=== PATIENT | male | born 1985 | race Caucasian/White ===

== ENCOUNTER 2017-03-22 18:12 | Emergency (ER) | payer OTHER ==
[~2017-03-22] VITALS: Ht 170.2 cm; Wt 74.8 kg
[2017-03-22] MEDS ORDERED: CLAR10CA3 PO (18:19)
[2017-03-22] MEDS ORDERED: ZEST1TAB5 PO (18:19)
[2017-03-22 20:38] LABS: BASO # 0.1 K/mm3 (0.0-0.2); BASO % 0.7 % (0.0-1.0); EOS # 0.2 K/mm3 (0.0-0.50); LARGE UNSTAINED CELL # 0.1 K/mm3 (0.0-0.4); LARGE UNSTAINED CELL % 1.3 % (0.0-4.0); LYMPH # 2.6 K/mm3 (1.5-4.5); LYMPH % 21.4 % (24.0-44.0); MEAN CORPUSCULAR HEMOGLOBIN 31.8 pg (27.0-33.0); MEAN CORPUSCULAR HGB CONC 35.3 g/dl (32.0-36.5); MEAN CORPUSCULAR VOLUME 90.2 fl (80.0-96.0); MONO # 0.5 K/mm3 (0.0-0.8); MONO % 4.2 % (0.0-5.0); NEUTROPHILS % 70.5 % (36.0-66.0); PLATELET COUNT, AUTOMATED 236 k/mm3 (150-450); RED CELL DISTRIBUTION WIDTH 12.2 % (11.5-14.5); WHITE BLOOD COUNT 11.3 K/mm3 (4.0-10.0)
[2017-03-22 20:56] LABS: ANION GAP 11 MEQ/L (8-16); BLOOD UREA NITROGEN 9 MG/DL (7-18); CALCIUM LEVEL 9.6 MG/DL (8.5-10.1); CARBON DIOXIDE LEVEL 28 MEQ/L (21-32); CHLORIDE LEVEL 97 MEQ/L (98-107); CREATININE FOR GFR 0.81 MG/DL (0.70-1.30); GLOMERULAR FILTRATION RATE > 60.0 (>60); GLUCOSE, FASTING 106 MG/DL (70-105); POTASSIUM SERUM 3.7 MEQ/L (3.5-5.1); SODIUM LEVEL 136 MEQ/L (136-145)
--- NOTE | 2017-03-22 22:30 | REPUSA ---
CT of the abdomen and pelvis without contrast Clinical statement: Pain, hematuria. Technique: Multiple axial CT images were obtained from the base of the lungs to the floor of the pelv is utilizing 5 mm axial slices without administration of contrast. Coronal and sagittal reconstructio ns were also obtained. No comparison is available. Findings: Chest: The visualized lung bases are clear. Abdomen: The kidneys are normal in size bilaterally. There is no evidence of hydronephrosis. Bilatera l nonobstructing nephrolithiasis is noted, with stones measuring up to 3 mm. There is diffuse low att enuation throughout the liver. The spleen, pancreas, gallbladder and adrenal glands are unremarkable. The aorta demonstrates normal caliber and contour. There is no abdominal lymphadenopathy or ascites. Pelvis: The bowel is unremarkable, with no obstructive or inflammatory changes. The urinary bladder i s within normal limits. There is no pelvic lymphadenopathy or ascites. The other pelvic structures ap pear unremarkable. Bones: There are no suspicious osseous abnormalities seen. Impression: 1. Minimal bilateral nonobstructing nephrolithiasis. No evidence of hydronephrosis. 2. Diffuse fatty infiltration of the liver. 3. No obstructive or inflammatory bowel changes.
[2017-03-22] MEDS ORDERED: CIPR500T89 PO (22:50)
[2017-03-22 22:53] VITALS: BP 155/103
[2017-03-22] MEDS ORDERED: CIPROFLOXACIN 500 MG TAB PO ONE (23:00)
--- NOTE | 2017-03-23 12:59 | ED PDOC ---
Post-Departure Follow-Up certified letter sent regarding radiology report Floridalma Looney MD March 23, 2017 12:59
== END 2017-03-22 22:55 | disposition home or self-care (01) ==
LOC: M ED 19:37
DX: R31.9 Hematuria, unspecified (principal); I10 Essential (primary) hypertension; Z87.442 Personal history of urinary calculi; Z79.899 Other long term (current) drug therapy; Z87.891 Personal history of nicotine dependence

== ENCOUNTER → 2018-02-28 | Outpatient (CLI) | payer OTHER | LOC: M RAD 06:51 | DX: J32.4 Chronic pansinusitis (principal) | CPT/HCPCS: 70486 ==

== ENCOUNTER 2018-03-10 22:31 | Emergency (ER) | payer OTHER ==
[2018-03-11] MEDS: ONDANSETRON 4 MG ORAL DISINTEGRATING TAB (Q0162 PER 1MG) PO (01:45)
[2018-03-11] MEDS: IBUPROFEN 600 MG TAB PO (01:45)
[2018-03-11] MEDS: AUGMENTIN 875 MG TAB PO (01:45)
== END 2018-03-11 02:14 | disposition home or self-care (01) ==
LOC: M ED 22:31
DX: J02.9 Acute pharyngitis, unspecified (principal); I10 Essential (primary) hypertension; Z79.899 Other long term (current) drug therapy; F17.210 Nicotine dependence, cigarettes, uncomplicated
CPT/HCPCS: Q0162

== ENCOUNTER 2018-03-11 15:56 | Emergency (ER) | payer OTHER ==
[2018-03-11] MEDS: NS 1,000 ML IV (17:31)
[2018-03-11] MEDS: KETOROLAC 30 MG/ML VIAL (J1885) IV (17:31)
[2018-03-11] MEDS: ONDANSETRON 4MG/2ML VIAL (J2405) IV (17:31)
[2018-03-11 17:35] LABS: BASO # 0.1 10^3/uL (0.0-0.2); BASO % 0.4 % (0.0-1.0); EOS # 0.4 10^3/uL (0.0-0.50); HEMATOCRIT 44.7 % (42.0-52.0); HEMOGLOBIN 15.8 g/dl (13.5-17.5); IMMATURE GRANULOCYTE % 0.7 % (0-3.0); LYMPH # 2.4 10^3/uL (1.5-4.5); LYMPH % 12.3 % (24.0-44.0); MEAN CORPUSCULAR HEMOGLOBIN 32.1 pg (27.0-33.0); MEAN CORPUSCULAR HGB CONC 35.3 g/dl (32.0-36.5); MEAN CORPUSCULAR VOLUME 90.9 fl (80.0-96.0); MONO # 1.5 10^3/uL (0.0-0.8); MONO % 8.1 % (0.0-5.0); NEUTROPHILS # 14.6 10^3/uL (1.8-7.7); NEUTROPHILS % 76.5 % (36.0-66.0); PLATELET COUNT, AUTOMATED 178 10^3/uL (150-450); RED BLOOD COUNT 4.92 10^6/uL (4.30-6.10); RED CELL DISTRIBUTION WIDTH 12.1 % (11.5-14.5); WHITE BLOOD COUNT 19.1 10^3/uL (4.0-10.0)
[2018-03-11] MEDS: METOCLOPRAMIDE INJ 10MG/2ML VIAL (J2765) IV (17:47)
[2018-03-11] MEDS: diphenhydrAMINE INJ 50MG/ML VIAL (J1200) IV (17:47)
[2018-03-11 18:00] LABS: ALKALINE PHOSPHATASE 63 U/L (45-117); ALT/SGPT 46 U/L (12-78); ANION GAP 5 MEQ/L (8-16); AST/SGOT 25 U/L (7-37); BILIRUBIN,DIRECT 0.2 MG/DL (0.0-0.2); BILIRUBIN,TOTAL 0.9 MG/DL (0.2-1.0); BLOOD UREA NITROGEN 9 MG/DL (7-18); CALCIUM LEVEL 9.3 MG/DL (8.5-10.1); CARBON DIOXIDE LEVEL 30 MEQ/L (21-32); CHLORIDE LEVEL 100 MEQ/L (98-107); CREATININE FOR GFR 0.89 MG/DL (0.70-1.30); GLOMERULAR FILTRATION RATE > 60.0 (>60); GLUCOSE, FASTING 93 MG/DL (70-100); LIPASE 135 U/L (73-393); SODIUM LEVEL 135 MEQ/L (136-145)
[2018-03-11 18:44] LABS: INFLUENZA A AMPLIFICATION NEGATIVE (NEGATIVE); INFLUENZA B AMPLIFICATION NEGATIVE (NEGATIVE)
[2018-03-11] MEDS: METOCLOPRAMIDE 10 MG TAB PO (19:20)
== END 2018-03-11 19:31 | disposition home or self-care (01) ==
LOC: M ED 15:56
DX: J02.9 Acute pharyngitis, unspecified (principal); R11.2 Nausea with vomiting, unspecified; R19.7 Diarrhea, unspecified; E86.0 Dehydration; F17.210 Nicotine dependence, cigarettes, uncomplicated; Z79.899 Other long term (current) drug therapy
CPT/HCPCS: J1200

== ENCOUNTER 2018-04-28 08:04 | Day surgery (SDC) | payer OTHER ==
[2018-04-28] MEDS ORDERED: fentaNYL 100 MCG/2 ML INJECTION (J3010) As Ordered ×3 (09:26→11:21)
[2018-04-28] MEDS ORDERED: MIDAZOLAM INJ 2 MG/2 ML VIAL (J2250) As Ordered (09:26)
[2018-04-28] MEDS ORDERED: ROCURONIUM BROMIDE 50 MG/5 ML VIAL As Ordered (09:29)
[2018-04-28] MEDS: OXYMETAZOLINE NASAL SPRAY (AFRIN) As Ordered (09:37)
[2018-04-28] MEDS ORDERED: LIDOCAINE 2% INJ 100 MG/5 ML SDV (FOR ANES.) As Ordered (10:02)
[2018-04-28] MEDS ORDERED: ONDANSETRON 4MG/2ML VIAL (J2405) As Ordered ×2 (10:02)
[2018-04-28] MEDS ORDERED: dexameTHASONE 4 MG/ML 1ML VIAL (J1100) As Ordered ×2 (10:06)
[2018-04-28] MEDS: LIDOCAINE W/EPINEPHRINE 1% 20ML VIAL As Ordered ×2 (10:09)
[2018-04-28] MEDS: EPINEPHrine 1MG/ML INJ 30ML MD-VIAL As Ordered (10:09)
[2018-04-28] MEDS: METHYLENE BLUE 0.5% (5MG/ML) 10 ML AMP (PROVAYBLUE)(Q9968 PER 1MG) As Ordered (10:09)
[2018-04-28] MEDS ORDERED: SUGAMMADEX SODIUM 500 MG/5 ML VIAL (BRIDION) As Ordered (10:38)
[2018-04-28] MEDS ORDERED: ePHEDrine SULFATE 25 MG/5 ML(5MG/ML) SYRINGE As Ordered (10:41)
[2018-04-28] MEDS ORDERED: ONDANSETRON 4MG/2ML VIAL (J2405) IV (11:30)
[2018-04-28] MEDS ORDERED: LR 1,000 ML IV (11:30)
[2018-04-28] MEDS: fentaNYL 100 MCG/2 ML INJECTION (J3010) IV ×4 (11:30→11:45)
[2018-04-28] MEDS ORDERED: PERCOCET 5MG/325MG TAB PO (11:30)
[2018-04-28] MEDS: PERCOCET 5MG/325MG TAB PO (11:52)
[2018-04-28] MEDS ORDERED: DESFLURANE 240 ML INHALANT As Ordered (13:17)
== END 2018-04-28 13:03 | disposition home or self-care (01) ==
LOC: M SDC 08:04
DX: J34.2 Deviated nasal septum (principal); J32.9 Chronic sinusitis, unspecified; I10 Essential (primary) hypertension; Z79.899 Other long term (current) drug therapy; F17.210 Nicotine dependence, cigarettes, uncomplicated
CPT/HCPCS: 30520

== ENCOUNTER 2018-04-29 04:44 | Emergency (ER) | payer OTHER | END 2018-04-29 08:18 | disposition home or self-care (01) | LOC: M ED 04:44 | DX: J95.830 Postprocedural hemorrhage of a respiratory system organ or structure following a respiratory system procedure (principal); Z79.899 Other long term (current) drug therapy | CPT/HCPCS: 99283 ==

== ENCOUNTER 2018-05-05 12:06 | Observation (INO) | payer OTHER ==
[2018-05-05] MEDS: MULTIVITAMINS/MINERALS THERAP 1 TAB PO (09:00)
[2018-05-05] MEDS: FOLIC ACID 1 MG TAB PO (09:00)
[2018-05-05 13:06] LABS: BASO # 0.1 10^3/uL (0.0-0.2); BASO % 0.4 % (0.0-1.0); EOS # 0.1 10^3/uL (0.0-0.50); EOS % 0.7 % (0.0-3.0); HEMATOCRIT 46.5 % (42.0-52.0); HEMOGLOBIN 16.5 g/dl (13.5-17.5); IMMATURE GRANULOCYTE % 1.2 % (0-3.0); LYMPH # 1.7 10^3/uL (1.5-4.5); LYMPH % 9.1 % (24.0-44.0); MEAN CORPUSCULAR HEMOGLOBIN 32.2 pg (27.0-33.0); MEAN CORPUSCULAR HGB CONC 35.5 g/dl (32.0-36.5); MEAN CORPUSCULAR VOLUME 90.6 fl (80.0-96.0); MONO # 0.9 10^3/uL (0.0-0.8); MONO % 4.9 % (0.0-5.0); NEUTROPHILS # 15.2 10^3/uL (1.8-7.7); NEUTROPHILS % 83.7 % (36.0-66.0); PLATELET COUNT, AUTOMATED 338 10^3/uL (150-450); RED BLOOD COUNT 5.13 10^6/uL (4.30-6.10); RED CELL DISTRIBUTION WIDTH 13.2 % (11.5-14.5); WHITE BLOOD COUNT 18.2 10^3/uL (4.0-10.0)
[2018-05-05] MEDS: METOCLOPRAMIDE INJ 10MG/2ML VIAL (J2765) IV ×2 (13:07→20:29)
[2018-05-05] MEDS: NS 1,000 ML IV ×3 (13:07→20:19)
[2018-05-05 13:38] LABS: ALBUMIN 4.1 GM/DL (3.2-5.2); ALBUMIN/GLOBULIN RATIO 0.98 (1.00-1.93); ALKALINE PHOSPHATASE 88 U/L (45-117); ALT/SGPT 82 U/L (12-78); ANION GAP 13 MEQ/L (8-16); AST/SGOT 37 U/L (7-37); BILIRUBIN,DIRECT 0.2 MG/DL (0.0-0.2); BILIRUBIN,TOTAL 1.1 MG/DL (0.2-1.0); BLOOD UREA NITROGEN 11 MG/DL (7-18); CALCIUM LEVEL 9.7 MG/DL (8.5-10.1); CARBON DIOXIDE LEVEL 26 MEQ/L (21-32); CHLORIDE LEVEL 99 MEQ/L (98-107); CK-MB VALUE MASS < 1.0 NG/ML (<3.6); CPK CREATINE PHOSPHOKINASE 98 U/L (39-308); CREATININE FOR GFR 1.03 MG/DL (0.70-1.30); GLOMERULAR FILTRATION RATE > 60.0 (>60); GLUCOSE, FASTING 151 MG/DL (70-100); LIPASE 91 U/L (73-393); MB/CK RELATIVE INDEX 1.02 (< OR =4); POTASSIUM SERUM 4.9 MEQ/L (3.5-5.1); SODIUM LEVEL 138 MEQ/L (136-145); TOTAL PROTEIN 8.3 GM/DL (6.4-8.2); TROPONIN I < 0.02 NG/ML (< 0.10)
[2018-05-05] MEDS ORDERED: ISOVUE-370 76% 100ML VIAL (Q9967) As Ordered (13:55)
[2018-05-05] MEDS: ONDANSETRON 4MG/2ML VIAL (J2405) IV ×2 (15:12→20:19)
[2018-05-05] MEDS: THIAMINE HCL 200 MG/2 ML VIAL (J3411) IV (17:03)
[2018-05-05] MEDS ORDERED: NICOTINE 14 MG/24 HR TRANSDERMAL TD (17:15)
[2018-05-05 18:51] LABS: ESTIMATED AVERAGE GLUCOSE 100 MG/DL (60-110); HEMOGLOBIN A1c 5.1 %
[2018-05-05 19:55] LABS: ETHYL ALCOHOL (ETHANOL) < 0.003 % (0.000-0.010)
[2018-05-05] MEDS: LORazepam 2 MG TAB PO (20:19)
[2018-05-05] MEDS: PANTOPRAZOLE 40MG INJ (PROTONIX) (C9113) IV (20:19)
[2018-05-05] MEDS: FAMOTIDINE IV BAG 20 MG in APPROPRIATE DILUENT 1 EA IV (20:55)
[2018-05-06] MEDS: NS 1,000 ML IV (01:08)
[2018-05-06 07:08] LABS: HEMATOCRIT 38.5 % (42.0-52.0); HEMOGLOBIN 13.5 g/dl (13.5-17.5); MEAN CORPUSCULAR HEMOGLOBIN 32.7 pg (27.0-33.0); MEAN CORPUSCULAR HGB CONC 35.1 g/dl (32.0-36.5); MEAN CORPUSCULAR VOLUME 93.2 fl (80.0-96.0); PLATELET COUNT, AUTOMATED 282 10^3/uL (150-450); RED BLOOD COUNT 4.13 10^6/uL (4.30-6.10); RED CELL DISTRIBUTION WIDTH 13.4 % (11.5-14.5); WHITE BLOOD COUNT 16.2 10^3/uL (4.0-10.0)
[2018-05-06 07:26] LABS: ALBUMIN/GLOBULIN RATIO 0.91 (1.00-1.93); ALKALINE PHOSPHATASE 63 U/L (45-117); ALT/SGPT 53 U/L (12-78); ANION GAP 7 MEQ/L (8-16); AST/SGOT 20 U/L (7-37); BLOOD UREA NITROGEN 10 MG/DL (7-18); CALCIUM LEVEL 8.3 MG/DL (8.5-10.1); CARBON DIOXIDE LEVEL 28 MEQ/L (21-32); CHLORIDE LEVEL 106 MEQ/L (98-107); CREATININE FOR GFR 0.79 MG/DL (0.70-1.30); GLOMERULAR FILTRATION RATE > 60.0 (>60); GLUCOSE, FASTING 94 MG/DL (70-100); POTASSIUM SERUM 3.6 MEQ/L (3.5-5.1); SODIUM LEVEL 141 MEQ/L (136-145); TOTAL PROTEIN 6.3 GM/DL (6.4-8.2)
[2018-05-06] MEDS: FOLIC ACID 1 MG TAB PO (08:30)
[2018-05-06] MEDS: MULTIVITAMINS/MINERALS THERAP 1 TAB PO (08:30)
[2018-05-06] MEDS: THIAMINE 100 MG TAB PO (08:30)
[2018-05-06] MEDS: ENOXAPARIN 40 MG/0.4 ML SYRINGE (J1650) SC (08:31)
== END 2018-05-06 13:16 | disposition home or self-care (01) ==
LOC: M ED 12:06 → M ED INP 17:41 → M MS5PR 20:00
DX: R11.2 Nausea with vomiting, unspecified (principal); I10 Essential (primary) hypertension; Z79.899 Other long term (current) drug therapy; R19.7 Diarrhea, unspecified; D72.829 Elevated white blood cell count, unspecified; F17.210 Nicotine dependence, cigarettes, uncomplicated
CPT/HCPCS: C9113